=== PATIENT | male | born 1985 | race Caucasian/White ===

== ENCOUNTER 2018-12-18 08:29 | Day surgery (SDC) | payer BC, OTHER ==
--- NOTE | 2018-12-17 11:03 | PCM.PREANE ---
<Beryl Isaac - Last Filed: 12/18/18 08:53> Preanesthetic Assessment - Procedure Proposed Procedure: right knee video arthroscopy medial meniscus repair - Anesthesia/Transfusion/Family Hx Anesthesia History: Prior Anesthesia Without Reaction Family History of Anesthesia Reaction: No Transfusion History: No Prior Transfusion(s) Intubation History: Unknown - Review of Systems General: No Symptoms Pulmonary: No Symptoms Gastrointestinal: No Symptoms Neurological: No Symptoms, Headache (denies ) Other: Reports: Sinus Problem (Seasonal allergies/Right Middle Ear Effusion- no current issues ) - Physical Assessment NPO Status Time: 21:00 Vital Signs: 114/71, 58, 96 spo2, 17 RR, 95 kg, 5'10" ASA Class: 2 Mental Status: Alert & Oriented x3 Airway Class: Mallampati = 1 Dentition: Reports: Normal Dentition Thyro-Mental Finger Breadths: 3 Mouth Opening Finger Breadths: 5 ROM/Head Extension: Full Lungs: Clear to Auscultation, Normal Respiratory Effort Cardiovascular: Regular Rate, Regular Rhythm - Lab Values: Laboratory Last Values MRSA (PCR) Negative 12/09/18 16:38 - Allergies Allergies/Adverse Reactions: Allergies Allergy/AdvReac Type Severity Reaction Status Date / Time No Known Allergies Allergy Verified 12/18/18 09:18 - Blood Blood Available: No - Anesthesia Plan Pre-Op Medication Ordered: None - Acknowledgements Anesthesia Type Planned: General Anesthesia Pt an Appropriate Candidate for the Planned Anesthesia: Yes Alternatives and Risks of Anesthesia Discussed w Pt/Guardian: Yes Pt/Guardian Understands and Agrees with Anesthesia Plan: Yes PreAnesthesia Questionnaire - HOME MEDS Home Medications: Home Meds Fluticasone Propionate [Flonase] 1 dose NASBOTH DAILY PRN 12/17/18 [History] Pantoprazole Sodium [Protonix] 40 mg PO DAILY 12/17/18 [History] Acetaminophen/HYDROcodone [[place] 325-5 MG] 1 - 2 tab PO Q6H PRN #20 tablet 12/18 [Rx] Aspirin 325 mg PO BID #84 tab 12/18/18 [Rx] - CURRENT (IN HOUSE) MEDS Current Meds: Current Medications Epinephrine HCl (Adrenalin) 3 mg .XX ONETIME BOONE Stop: 12/18/18 18:00 Lactated Ringer's (Ringers, Lactated) 1,000 mls @ 125 mls/hr IV ASDIRECTED BOONE Stop: 12/18/18 23:00 Lidocaine/Sodium Bicarbonate (Buffered Lidocaine 1% In Ns 8.4%) 0.25 ml IDERM ONETIME PRN PRN Reason: Prior to IV Start Stop: 12/18/18 18:00 Sodium Chloride (Saline Flush) 10 ml FLUSH ASDIRECTED PRN PRN Reason: Keep Vein Open Stop: 12/18/18 18:00 Discontinued Medications Bupivacaine HCl (Sensorcaine-Mpf 0.25%) Confirm Administered Dose 10 ml .ROUTE .STK-MED ONE Stop: 12/18/18 08:45 Cefazolin Sodium (Ancef) Confirm Administered Dose 2 gm .ROUTE .STK-MED ONE Stop: 12/18/18 06:53 Dexamethasone (Dexamethasone) Confirm Administered Dose 20 mg .ROUTE .STK-MED ONE Stop: 12/18/18 06:53 Fentanyl (Sublimaze) Confirm Administered Dose 250 mcg .ROUTE .STK-MED ONE Stop: 12/18/18 06:55 Hydromorphone HCl (Dilaudid) Confirm Administered Dose 0.5 mg .ROUTE .STK-MED ONE Stop: 12/18/18 06:53 Lidocaine HCl (Xylocaine-Mpf 1%) Confirm Administered Dose 6 mls @ as directed .ROUTE .STK-MED ONE Stop: 12/18/18 06:53 Lactated Ringer's (Ringers, Lactated) Confirm Administered Dose 1,000 mls @ as directed .ROUTE .STK-MED ONE Stop: 12/18/18 06:53 Ketorolac Tromethamine (Toradol) Confirm Administered Dose 30 mg .ROUTE .STK- MED ONE Stop: 12/18/18 06:53 Midazolam HCl (Versed 1 Mg/Ml) Confirm Administered Dose 2 mg .ROUTE .STK-MED ONE Stop: 12/18/18 06:54 Ondansetron HCl (Zofran) Confirm Administered Dose 4 mg .ROUTE .STK-MED ONE Stop: 12/18/18 06:53 Propofol (Diprivan 20 Ml) Confirm Administered Dose 200 mg .ROUTE .STK-MED ONE Stop: 12/18/18 06:54 <Edelmira Hale - Last Filed: 12/18/18 09:44> Preanesthetic Assessment - Anesthesia/Transfusion/Family Hx Anesthesia History: Prior Anesthesia Without Reaction Family History of Anesthesia Reaction: No Transfusion History: No Prior Transfusion(s) Intubation History: Unknown - Review of Systems Pulmonary: No Symptoms (ETOH: Beers per week=8-10) Gastrointestinal: No Symptoms (GERD) Neurological: Headache Other: Reports: Sinus Problem (Seasonal allergies/Right Middle Ear Effusion) - Physical Assessment NPO Status Date: 12/17/18 Height: 1.78 m Weight: 95 kg ASA Class: 2 Mental Status: Alert & Oriented x3 Dentition: Reports: Normal Dentition, Caries Mouth Opening Finger Breadths: 3 Cardiovascular: No Murmurs - Lab Values: Laboratory Last Values MRSA (PCR) Negative 12/09/18 16:38 Above lab noted. - Anesthesia Plan Pre-Op Medication Ordered: None - Acknowledgements Anesthesia Type Planned: General Anesthesia Pt an Appropriate Candidate for the Planned Anesthesia: Yes Alternatives and Risks of Anesthesia Discussed w Pt/Guardian: Yes Pt/Guardian Understands and Agrees with Anesthesia Plan: Yes
[~2018-12-18 08:29] MED LIST: Dexamethasone 4 MG/ML 5 ML MDV ONE; EPINEPHrine 1 MG/ML 30 ML MDV SCH; HYDROmorphone 0.5 MG/0.5 ML Syringe ONE; Ketorolac 30 MG/ML SDV ONE; Lactated Ringers 1,000 ML IV SCH; Lactated Ringers 1,000 ML ONE; Lidocaine 1% 6 ML ONE; Lidocaine 1%/Sod Bicarbonate in NS 8.4% 1 ML Syringe IDERM PRN; Midazolam 1 MG/ML 2 ML SDV ONE; Ondansetron 4 MG/2 ML SDV ONE; Propofol 200 MG/20 ML SDV ONE; Sodium Chloride 0.9% 10 ML Syringe FLUSH PRN; ceFAZolin 1 GM Vial ONE; fentaNYL 250 MCG/5 ML SDV ONE
[2018-12-18] MEDS ORDERED: Bupivacaine 0.25% 10 ML SDV ONE (08:44)
[2018-12-18] MEDS ORDERED: Atropine 0.4 MG/ML SDV ONE (10:09)
[2018-12-18] MEDS ORDERED: HYDROmorphone 0.5 MG/0.5 ML Syringe IVPUSH PRN (10:20)
[2018-12-18] MEDS ORDERED: fentaNYL 100 MCG/2 ML SDV IVPUSH PRN (10:20)
[2018-12-18] MEDS ORDERED: ePHEDrine 50 MG/ML SDV IVPUSH PRN (10:20)
[2018-12-18] MEDS ORDERED: Ondansetron 4 MG/2 ML SDV IVPUSH PRN (10:20)
[2018-12-18] MEDS ORDERED: diphenhydrAMINE 50 MG/ML SDV IVPUSH PRN (10:20)
[2018-12-18] MEDS ORDERED: Phenylephrine 1 MG in Sodium Chloride 0.9% 10 ML IV SCH (10:30)
[2018-12-18] MEDS ORDERED: Meperidine 50 MG/ML Vial IVPUSH PRN (11:02)
--- NOTE | 2018-12-18 11:05 | PCM.POSTAN ---
POST ANESTHESIA ASSESSMENT - MENTAL STATUS Mental Status: Alert - VITAL SIGNS Vital Signs: Last Vital Signs Temp 98.1f 12/18/18 1057 Pulse 81 12/18/18 1057 Resp 10 12/18/18 1057 BP 111/82 12/18/18 1057 Pulse Ox 95 12/18/18 1057 - RESPIRATORY Respiratory Status: Respiratory Rate WNL, Airway Patent, O2 Saturation Stable, Supplemental Oxygen - CARDIOVASCULAR CV Status: Pulse Rate WNL, Blood Pressure Stable - GASTROINTESTINAL GI Status: No Symptoms - POST OP HYDRATION Hydration Status: Adequate & Stable
[2018-12-18] MEDS ORDERED: Acetaminophen/HYDROcodone 325-5 MG Tab PO PRN (11:22)
--- NOTE | 2018-12-18 11:38 | PCM48HPAN ---
Post Anesthesia Note - EVALUATION WITHIN 48HRS OF ANESTHETIC Vital Signs in Normal Range: Yes Patient Participated in Evaluation: Yes Respiratory Function Stable: Yes Airway Patent: Yes Cardiovascular Function Stable: Yes Hydration Status Stable: Yes Pain Control Satisfactory: Yes Nausea and Vomiting Control Satisfactory: Yes Mental Status Recovered: Yes Vital Signs: Last Vital Signs Temp 36.6 C 12/18/18 11:25 Pulse 58 L 12/18/18 08:40 Resp 20 12/18/18 11:25 BP 117/69 12/18/18 11:25 Pulse Ox 97 12/18/18 11:25
--- NOTE | 2018-12-23 14:21 | PCM.OPNOTE ---
- General Post-Op/Procedure Note Date of Surgery/Procedure: 12/18/18 Operative Procedure(s): right knee video arthroscopy with partial synovectomy Pre Op Diagnosis: right knee pain with possible medial meiscus tear Post-Op Diagnosis: right knee fat pad impingement with synovitis Primary Surgeon: Gentry Abdalla Anesthesia Provider: Edelmira Hale Coal Trammer: Monica Mccabe in mLs: 5 Complications: None Condition: Good
--- NOTE | 2018-12-23 15:09 | OR ---
DATE OF OPERATION: 12/18/2018 SURGEON: Gentry Abdalla MD OPERATION PERFORMED: Right knee video arthroscopy with partial synovectomy. PREOPERATIVE DIAGNOSIS: Right knee pain with possible medial meniscus tear. POSTOPERATIVE DIAGNOSIS: Right knee fat pad impingement with synovitis. ANESTHESIA PROVIDER: Edelmira Hale CRNA. SPECIAL WARFARE OPERATOR: Monica Mccabe PA-C. ESTIMATED BLOOD LOSS: 5 mL. COMPLICATIONS: None. CONDITION: Stable. DESCRIPTION OF PROCEDURE: The patient was identified in the preoperative holding area and proper site was marked and identified by the surgeon. The patient was taken back to the operating theater, where after adequate anesthesia, the patient's right lower extremity had a nonsterile tourniquet applied and then the left lower extremity was placed in a well leg moreno, right lower extremity was placed in a C-clamp moreno, and the foot of the bed was lowered. Right lower extremity was then sterilely prepped and draped in the usual sterile fashion. OR time-out was performed. The patient received 2 g IV Ancef. Right lower extremity was exsanguinated and tourniquet was insufflated 250 mmHg. Standard anterolateral portal incision was made. Scope trocar was introduced. 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 The patient did have significant synovitis on the medial side with overgrowth of the fat pad on the medial side with a small plica. Attention was turned to the medial compartment and an anterior medial portal was created with the use of a spinal needle. The medial compartment showed no signs of chondromalacia, and there was no medial meniscus tear noted. Attention was turned to the notch. ACL was intact from the notch. Lateral compartment showed no changes and no lateral meniscus tear. At this time, a partial synovectomy of the medial fat pad as well as the medial plica was done. It was brought back to a stable rim. There was no significant loose cartilaginous pieces, so at this time, excess saline was drained. A 3-0 nylon suture was used for closure of the skin. The patient had a sterile soft dressing applied and was sent to PACU in stable condition. ANESTHESIA: MMODAL /[id number]
== END 2018-12-18 12:37 | disposition home or self-care (01) ==
LOC: JD.SDS 08:29
PROVIDERS: ATTEND Orthopaedic Surgery
DX: M25.861 Other specified joint disorders, right knee (principal); M65.9 Synovitis and tenosynovitis, unspecified; M22.41 Chondromalacia patellae, right knee; K21.9 Gastro-esophageal reflux disease without esophagitis; Z87.891 Personal history of nicotine dependence
CPT/HCPCS: 01400; 87641; A9270-GY; J0171; J0461; J0690; J1100; J1170; J1885; J2001; J2250; J2405; J2704; J3010; J3490; J7120